=== PATIENT | female | born 1990 | race Caucasian/White ===

== ENCOUNTER 2017-12-01 10:32 | Emergency (ER) | payer MEDICAID, OTHER, SELFPAY ==
[~2017-12-01] VITALS: Ht 165.1 cm; Wt 88.6 kg
[2017-12-01 13:26] VITALS: BP 122/70
== END 2017-12-01 13:29 | disposition home or self-care (01) ==
LOC: ED 13:23
DX: G89.11 Acute pain due to trauma (principal); M25.562 Pain in left knee; W18.39XA Other fall on same level, initial encounter; Y93.89 Activity, other specified; Y92.89 Other specified places as the place of occurrence of the external cause; Y99.8 Other external cause status
CPT/HCPCS: 99284